=== PATIENT | female | born 1965 | race Caucasian/White ===

== ENCOUNTER → 2016-11-30 | Outpatient (CLI) | payer BC ==
[~2016-11-30] MED LIST: CITA10TA4 PO; ESTR1PAT65 TP; LEVO500T8 PO; ONDA4TAB7 PO; PROM5SYR PO
== END | disposition home or self-care (01) ==
LOC: CFH 15:02
PROVIDERS: ATTEND Nurse Practitioner Family
DX: R05 Cough (principal); R06.00 Dyspnea, unspecified; R06.02 Shortness of breath
CPT/HCPCS: 71020

== ENCOUNTER → 2017-03-21 | Outpatient (CLI) | payer BC | END | disposition home or self-care (01) | LOC: CFH 09:16 | PROVIDERS: ATTEND Obstetrics & Gynecology | DX: Z12.31 Encounter for screening mammogram for malignant neoplasm of breast (principal); Z80.3 Family history of malignant neoplasm of breast | CPT/HCPCS: 77063; G0202 ==

== ENCOUNTER → 2018-04-04 | Outpatient (CLI) | payer BC | END | disposition home or self-care (01) | LOC: CFH 12:44 | PROVIDERS: ATTEND Obstetrics & Gynecology | DX: Z12.31 Encounter for screening mammogram for malignant neoplasm of breast (principal) | CPT/HCPCS: 77063; 77067 ==

== ENCOUNTER → 2019-05-23 | Outpatient (CLI) | payer BC | END | disposition home or self-care (01) | LOC: CFH 08:10 | PROVIDERS: ATTEND Obstetrics & Gynecology | DX: Z12.31 Encounter for screening mammogram for malignant neoplasm of breast (principal); Z90.3 Acquired absence of stomach [part of] | CPT/HCPCS: 76641; 77063; 77067 ==

== ENCOUNTER → 2020-11-17 | Outpatient (CLI) | payer BC | END | disposition home or self-care (01) | LOC: CFH 12:57 | PROVIDERS: ATTEND Obstetrics & Gynecology | DX: Z12.31 Encounter for screening mammogram for malignant neoplasm of breast (principal) | CPT/HCPCS: 77063; 77067 ==